=== PATIENT | female | born 1940 | race Caucasian/White ===

== ENCOUNTER 2019-04-01 13:37 | Inpatient (IN) | payer OTHER ==
[~2019-04-01] VITALS: Ht 152.4 cm; Wt 75.5 kg
[2019-04-01 13:46] VITALS: BP 165/64
[2019-04-01] MEDS ORDERED: SPIRIVA18 MCG INH (13:55)
[2019-04-01] MEDS ORDERED: LEVALBUTER1.25 MG/0. INH (13:55)
[2019-04-01] MEDS ORDERED: SYMBICORT80 MCG/4.1 INH (13:55)
[2019-04-01 14:22] LABS: ABSOLUTE BASOPHILS 0.1 thou/uL (0.0-0.2); ABSOLUTE EOSINOPHILS 0.3 thou/uL (0.0-0.7); ABSOLUTE LYMPHOCYTES 0.6 thou/uL (0.8-5.3); ABSOLUTE MONOCYTES 0.4 thou/uL (0.0-1.2); ABSOLUTE NEUTROPHILS 4.7 thou/uL (1.6-8.1); BASOPHILS 1.1 %; EOSINOPHILS 5.1 %; HEMATOCRIT 34.3 % (37.0-47.0); HEMOGLOBIN 11.5 gm/dL (12.0-15.0); LYMPHOCYTES 9.9 %; MCH 31.3 pg (26.0-34.0); MCHC 33.6 g/dL (28.0-37.0); MCV 93.3 fL (80.0-100.0); MONOCYTES 7.3 %; MPV 9.3 fl. (7.2-11.1); NUCLEATED RBCS 0 /100WBC; PLATELET COUNT* 217 thou/uL (150-400); POLYS 76.6 %; RBC 3.68 mil/uL (4.20-5.00); RDW-CV 13.6 % (10.5-14.5); WBC 6.1 thou/uL (4.0-11.0)
[2019-04-01 14:28] LABS: BE 6.5 mmol/L (-2 to +3); PO2 115.9 mmHg (75.0-100.0); pH 7.361 (7.340-7.450)
[2019-04-01 14:29] LABS: PCO2 60.5 mmHg (35.0-45.0)
[2019-04-01 14:31] LABS: APTT 30.1 Seconds (25.0-31.3); PROTIME 10.5 Seconds (9.20-11.50)
[2019-04-01 14:42] LABS: CALCIUM 9.2 mg/dL (8.5-10.1); CREATININE 1.3 mg/dL (0.6-1.3); POTASSIUM 4.4 mmol/L (3.5-5.1)
[2019-04-01 14:46] LABS: ALBUMIN 3.6 g/dL (3.4-5.0); MAGNESIUM 2.1 mg/dL (1.8-2.4); TOTAL BILIRUBIN 0.3 mg/dL (<0.1-1.0); TOTAL PROTEIN 8.1 g/dL (6.4-8.2)
[2019-04-01 14:57] LABS: URINE BILIRUBIN NEGATIVE (Negative); URINE BLOOD TRACE (Negative); URINE CLARITY CLEAR; URINE COLOR YELLOW; URINE GLUCOSE-RANDOM NEGATIVE (Negative); URINE KETONES NEGATIVE (Negative); URINE LEUKOCYTES-REFLEX 1+ (Negative); URINE NITRITE-REFLEX NEGATIVE (Negative); URINE PROTEIN NEGATIVE (Negative); URINE SPECIFIC GRAVITY 1.015 (1.005-1.030); URINE UROBILINOGEN 0.2 E.U./dl (0.2-1.0)
[2019-04-01 15:03] LABS: SQUAMOUS >10 Many /LPF (0-3)
[2019-04-01 15:04] LABS: URINE WBC-REFLEX 6-15 Few /HPF (0-5); WBC CLUMPS Few (None Seen)
[2019-04-01 15:05] LABS: HYALINE CASTS 4-10 Moderate /LPF (None Seen); MUCUS 4-6 Moderate strn/LPF (None Seen); URINE RBC 0-2 Rare /HPF (0-2)
[2019-04-01 15:06] LABS: CRYSTALS None Seen /LPF (None Seen)
[2019-04-01 15:18] VITALS: BP 162/71
[2019-04-01 16:00] VITALS: BP 151/79
--- NOTE | 2019-04-01 17:38 | NUR ---
PT ADMITTED ON TELE FLOOR AT 1600. ON BIPAP FIO2 30 %. 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 LBM TWO DAYS AGO PER PT. HEART HEALTHY DIET. IV LINE NOT WORKING. NEW IV IN LEFT FOREARM. NS INFUSING WIDE OPEN, ROCEPHIN HANGED. PT IS DELUSIONAL AND IS ASKING WHERE SHE IS AT. PATIENT'S SON HELPED WITH ADMISSION HX AND ASSESSMENT. SPUTUM CULTURE PENDING. PT HOME MEDICATION WHERE SENT TO PHARMACY. BED ALARM ON . FALL PRECAUTION IN PLACE. PT REFUSED TO KEEP BIPAP ON FOR LONG. PT WAS SWITCHED TO O2 NC 3 L AROUND DINER TIME. PT NNOW SEATED IN CHAIR. CHAIR ALARM ON. CASE MANGEMENT CONSULT IN FOR DEVULCANIZER TENDER NURSING CARE PLACEMENT. LEFT FOOT SWELLING NOTICED. WILL CONTINUE TO MONITOR PT
--- NOTE | 2019-04-01 18:51 | NUR ---
NEW IV LINE IN LEFT FOREARM GOT INFILTRATED. WARM COMPRESS APPLIED. EXTREMITY IS ELEVATED ON PILLOW.
[2019-04-01 20:00] VITALS: BP 124/78
[2019-04-02] VITALS: BP 126/60
[2019-04-02 04:00] VITALS: BP 150/80
[2019-04-02 05:49] LABS: BE 0.5 mmol/L (-2 to +3)
[2019-04-02 05:57] LABS: PCO2 59.5 mmHg (35.0-45.0); PO2 129.2 mmHg (75.0-100.0); pH 7.293 (7.340-7.450)
--- NOTE | 2019-04-02 06:11 | NUR ---
ASSUMED PT CARE AT APPROX 1930. PT IS AWAKE AND ORIENTED X4. VSS ON 2-3L OF O2/NC. HADOOP ADMINISTRATOR IN PLACE TRACING SR/ST. ASSESSMENT DONE AND CHARTED. NO DESATURATIONS NOTED. PT IS ABLE TO SLEEP MOST OF THE NIGHT. CALL LIGHT WITHIN REACH. HIGH FALL PRECAUTINS IN PLACE. HOURLY ROUNDING DONE FOR PT SAFETY.
[2019-04-02 08:00] VITALS: BP 119/49
--- NOTE | 2019-04-02 12:00 | NUR ---
INITIAL ASSESSMENT: Pt evaluated for d/c planning needs. Reviewed chart and spoke with nurse, pt and pt's son. Pt has history of dementia. Pt had been living with son in [facility]. Pt's son has been in contact with admissions rn at the [facility] in [place] re: placement. Currently pt and son are staying in a motel until arrangements are made for admission to the [facility]. Called admissions rn at the [facility] and left message. Pt's son said he is DPOA for pt. He is interested in hospice for pt at facility. Faxed referral. Will remain available to assist as needed.
--- NOTE | 2019-04-02 12:10 | EKG ---
[place] [address] ELECTROCARDIOGRAM REPORT Name: SANA CARMONAYCPatrice WARD Room: [address] ADM IN M.R.#: [id number] Admission: 04/01/19 Attend Phys: Goyo Felix MD Discharge: Date of : 40 Report #: [id number] THIS REPORT FOR: //name// [facility] ED Test Date: 2019-04-01 Test Time: 13:59:28 Pat Name: HAILEE CARMONA Department: Room: [facility] Gender: F Line Up Examiner: [place] : 1940 Requested By: Abby Mejias Order Number: [id number] MD: Roberto Alvarado Measurements Intervals Dunlap Rate: 96 P: 81 SC: 138 QRS: 39 QRSD: 76 T: 36 QT: 347 QTc: 439 Interpretive Statements Sinus rhythm Biatrial enlargement Artifact in lead(s) I,II,III,aVR,aVL,aVF No previous ECG available for comparison Electronically Signed On 04-02-2019 12:10:48 [employer] by Roberto Alvarado [email or web address] <ELECTRONICALLY SIGNED> By: Roberto Alvarado MD, FACC 04/02/19 1210 1359 [id number] Roberto Alvarado MD, FAC /EPI
[2019-04-02 12:13] VITALS: BP 140/65
[2019-04-02 17:04] VITALS: BP 154/78
--- NOTE | 2019-04-02 19:15 | NUR ---
RECEIVED CALL FROM PT SON, FRANK, IN REGARDS TO PATIENT HAVING CHAIR ALARM. EXPLAINED TO PT FAMILY THAT PER HOSPITAL POLICY, PT IS HIGH FALL PRECAUTIONS AND CHAIR ALARM IS ON FOR SAFETY. PT CALL LIGHT IS WITHIN REACH, PT VERY FORGETFUL AND REQUIRES FREQUENT REORENTATION.
[2019-04-02 20:00] VITALS: BP 158/78
[2019-04-03] VITALS: BP 121/58
[2019-04-03 04:30] VITALS: BP 122/56
--- NOTE | 2019-04-03 06:09 | NUR ---
ASSUMED PATIENT CARE AT 1900. ASSESSMENT COMPLETED CHARTED. VSS. PATIENT IS NSR ON THE MONITOR. HOURLY ROUNDING IN PLACE FOR PATIENT SAFETY. CLWR.
[2019-04-03 08:00] VITALS: BP 120/46
[2019-04-03] MEDS ORDERED: MELATONIN5 M1 PO (11:23)
[2019-04-03] MEDS ORDERED: PREDNISONE 20 M20 MG PO (11:23)
[2019-04-03] MEDS ORDERED: ACETAMINOPHEN325 M1 PO (11:23)
[2019-04-03] MEDS ORDERED: MUCINEX600 MG PO (11:23)
[2019-04-03] MEDS ORDERED: AZITHROMYCIN 2250 MG PO (11:23)
[2019-04-03] MEDS ORDERED: CEFDINIR300 MG PO (11:23)
[2019-04-03] MEDS ORDERED: XANAX 0.25 MG0.25 MG PO (11:23)
[2019-04-03] MEDS ORDERED: VITAMIN D250000 UNIT PO (11:23)
[2019-04-03 12:00] VITALS: BP 137/64
--- NOTE | 2019-04-03 14:57 | NUR ---
SPOKE WITH LITZY/ADMISSIONS AT THE [facility]. SHE SAID THEY NEED UPDATED PT NOTES AND BIPAP SETTINGS. FAXED HER PT EVAL, BIPAP ORDERS AND DISCHARGE SUMMARY -[phone]. SHE SAID THEY CAN ACCEPT PT.BUT JUST NEED TO GET AUTH FOR SHORT SKILLED STAY FROM INSURANCE. SPOKE WITH SON,FRANK, HE WAS LEAVING PT.S ROOM. INFORMED HIM OF ABOVE. HE SAID HE NEEDED TO GO BY THE [facility] TO GIVE THEM A DEPOSIT,WHICH HE IS DOING THIS AFTERNOON. HE SAID HE MAY NOT BE BACK TONIGHT. TOLD HIM EITHER CM RESORT DESK CLERK WILL CALL HIM IF HIS MOM GOES TO THE [facility] TODAY. DISCUSSED ABOVE WITH TAMIE ROMANO. [employer] COPYING CHART IN CASE OF DISCHARGE.
--- NOTE | 2019-04-03 15:02 | NUR ---
ASSUMED PT CARE AT 0800, AOX2, UP WITH ASSIST, USES WALKER. PT COMPLAIN OF SOA WITH ACTIVITY, O2 SAT 90'S 2L NC. PT HAS PRN BIPAP. TRACING SINUS TACH ON TELE. PT FOR PENDING DISCHARGE. CM ONBOARD FOR SKILLED PLACEMENT. VSS, AM ASSESSMENT CHARTED, MEDS GIVEN PER MAR, CALL LIGHT WITHIN REACH, BED/CHAIR ALARM. WILL CONTINUE TO MONITOR.
[2019-04-03 17:29] VITALS: BP 138/78
[2019-04-03 20:00] VITALS: BP 154/82
[2019-04-04 00:37] VITALS: BP 134/68
[2019-04-04 04:20] VITALS: BP 135/78
--- NOTE | 2019-04-04 05:40 | NUR ---
ASSUMED PT CARE AT 1910. NURSING ASSESSMENT COMPLETED AT START OF SHIFT. VS STABLE. DIRECTOR OF ANALYTICS IN PLACE, TRACING ST/SR. PT HAD BRIEF EPISODE OF SVT, ASYMPTOMATIC, QUICKLY CONVERTED TO SR. PT SOA WITH ACTIVITY. REFUSED BIPAP HS. HIGH FALL PRECAUTIONS IN PLACE. PT FORGETFUL AND CONFUSED AT TIMES. CALL LIGHT WITHIN REACH.
[2019-04-04 08:00] VITALS: BP 148/71
--- NOTE | 2019-04-04 12:04 | NUR ---
jess f/u w/Monique to check for insur auth. per margaret auth as not yet been received. Margaret to contact CM once auth received.
[2019-04-04 15:25] VITALS: BP 148/71
--- NOTE | 2019-04-04 16:06 | NUR ---
LYNNETTE FROM THE [facility] CALLED TO REPORT THEY HAVE RECEIVED INSUR AUTH AND ABLE TO TAKE PT TONINGT. [facility] WILL SEND W/C VAN W/O2 CAPABILITY TONIGHT AT 5PM. PT SON NOTIFIED. HE IS HEADING OVER IN [facility] TO SET UP PT'S ROOM. NURSE NOTIFED. AND IN AGREEMENT. AND GIVEN NUMBER WHERE TO CALL REPORT.
--- NOTE | 2019-04-04 19:21 | NUR ---
ASSUMED PT CARE AT 0730, FULL ASSESMENT DONE CHARTED. PT A/O X3, FORGETFUL AT TIMES. PT UP WITH ASSIST, DOES NOT CALL FOR ASSISTANCE AFTER BEING EDUCATED TO CALL. PT C/O SOME PAIN IN RIGHT SHOULDER. MEDS GIVEN PER JUL. DISCHARGE ORDERS RECIEVED. PT LEFT WITH TRANPORTATION TO THE [facility] AT APPROX 1740. REPORT GIVEN TO [facility] AT THE [facility]
== END 2019-04-04 17:40 | DRG 177 ==
LOC: M.ERS 13:37 → M.2W 14:40 → M.TBA-ER 14:40 → M.2W 15:10
PROVIDERS: Personal Emergency Response Attendant; ADMIT Internal Medicine
PROC: 5A09357 Assistance with Respiratory Ventilation, Less than 24 Consecutive Hours, Continuous Positive Airway Pressure (ICD-10-PCS; principal; 2019-04-01)
PROC: 5A09357 Assistance with Respiratory Ventilation, Less than 24 Consecutive Hours, Continuous Positive Airway Pressure (ICD-10-PCS; 2019-04-04)
DX: J69.0 Pneumonitis due to inhalation of food and vomit (principal); E43 Unspecified severe protein-calorie malnutrition; J96.02 Acute respiratory failure with hypercapnia; J96.01 Acute respiratory failure with hypoxia; J44.1 Chronic obstructive pulmonary disease with (acute) exacerbation; N30.91 Cystitis, unspecified with hematuria; E86.9 Volume depletion, unspecified; E55.9 Vitamin D deficiency, unspecified; N18.3 Chronic kidney disease, stage 3 (moderate); G30.9 Alzheimer's disease, unspecified; F02.80 Dementia in other diseases classified elsewhere, unspecified severity, without behavioral disturbance, psychotic disturbance, mood disturbance, and anxiety; R04.0 Epistaxis; Z66 Do not resuscitate; Z87.891 Personal history of nicotine dependence; Z68.32 Body mass index [BMI] 32.0-32.9, adult